=== PATIENT | male | born 1980 | race Caucasian/White ===

== ENCOUNTER 2017-06-25 13:59 | Inpatient (IN) | payer OTHER ==
[~2017-06-25] VITALS: Ht 175.3 cm; Wt 72.6 kg
[2017-06-25] VITALS (7 sets, daily range): BP systolic 104–155; BP diastolic 55–98
[~2017-06-25 13:59] MED LIST: DILANTIN100 MG ORAL; KEPPRA500 MG ORAL
[2017-06-25] MEDS ORDERED: LORazepam Inj 2mg/ml 1ml ONE (14:19)
[2017-06-25] MEDS ORDERED: LORazepam Inj 2mg/ml 1ml IM ONE (14:30)
[2017-06-25 15:07] LABS: BASOPHILS % (AUTO) 2.9 % (0.0-2.0); EOSINOPHILS % (AUTO) 1.8 % (0.0-3.0); HEMATOCRIT 33.4 % (42.0-52.0); HEMOGLOBIN 10.7 G/DL (14.2-18.0); LYMPHOCYTES % (AUTO) 35.9 % (20.0-45.0); MEAN CORPUSCULAR VOLUME 101 FL (80-99); MONOCYTES % (AUTO) 11.1 % (1.0-10.0); NEUTROPHILS % (AUTO) 48.3 % (45.0-75.0); PLATELET COUNT 168 K/UL (150-450); RED BLOOD COUNT 3.31 M/UL (4.70-6.10); WHITE BLOOD COUNT 7.3 K/UL (4.8-10.8)
[2017-06-25] MEDS ORDERED: LORazepam Inj 2mg/ml 1ml IV ONE (15:30)
[2017-06-25 15:31] LABS: ANION GAP 23 mmol/L (5-15); BLOOD UREA NITROGEN 12 mg/dL (7-18); CALCIUM 10.2 MG/DL (8.5-10.1); CARBON DIOXIDE 10 MMOL/L (21-32); CHLORIDE 107 MMOL/L (98-107); CREATININE 1.3 MG/DL (0.55-1.30); POTASSIUM 5.5 MMOL/L (3.5-5.1); SODIUM 140 MMOL/L (136-145)
[2017-06-25 15:41] LABS: ALANINE AMINOTRANSFERASE 42 U/L (12-78); ALBUMIN 3.4 G/DL (3.4-5.0); ALBUMIN/GLOBULIN RATIO 0.6 (1.0-2.7); ALKALINE PHOSPHATASE 148 U/L (46-116); ASPARTATE AMINO TRANSFERASE 90 U/L (15-37); BILIRUBIN,TOTAL 1.8 MG/DL (0.2-1.0)
[2017-06-25 15:49] LABS: BILIRUBIN,DIRECT 1.1 MG/DL (0.0-0.3)
--- NOTE | 2017-06-25 16:18 | Emergency Room Report ---
History of Present Illness General Chief Complaint: Seizure Source: Patient, EMS Present Illness HPI 28-year-old male presents ED for evaluation. Patient brought in by EMS status post seizure. unwitnessed seizure. Patient was on ground. Bystander called 911. Patient presents with laceration over right eyebrow, in c-collar. Patient is post ictal. according to EMS has a history of seizures but also history of alcohol abuse. Patient states he does not take any seizure medications. Denies any pain. Denies any drug use. Denies any chest pain shortness of breath. No other aggravating relieving factors. Denies any other associated symptoms Allergies: Coded Allergies: No Known Allergies (Unverified , 06/25/17) Patient History Past Medical History: seizures Past Surgical History: none Pertinent Family History: none Social History: Reports: alcohol use, Denies: smoking, drug use Immunizations: UTD Reviewed Nursing Documentation: PMH: Agreed, PSxH: Agreed Nursing Documentation-PMH Past Medical History: No History, Except For Hx Seizures: Yes Review of Systems All Other Systems: negative except mentioned in HPI Physical Exam Vital Signs Date Time Temp Pulse Resp B/P (MAP) Pulse Ox O2 Delivery O2 Flow Rate FiO2 06/25/17 14:00 97.1 96 20 136/63 98 Room Air 97.2 Sp02 EP Interpretation: reviewed, normal General Appearance: no apparent distress, Postictal Head: normocephalic, other - 1cm laceration above R eyebrow Eyes: bilateral eye normal inspection, bilateral eye PERRL ENT: hearing grossly normal, normal pharynx, no angioedema, normal voice Neck: full range of motion, supple/symm/no masses Respiratory: chest non-tender, lungs clear, normal breath sounds, speaking full sentences Cardiovascular #1: regular rate, rhythm, no edema Cardiovascular #2: 2+ carotid (R), 2+ carotid (L), 2+ radial (R), 2+ radial (L) , 2+ dorsalis pedis (R), 2+ dorsalis pedis (L) Gastrointestinal: normal bowel sounds, non tender, soft, non-distended, no guarding, no rebound Rectal: deferred Genitourinary: normal inspection, no CVA tenderness Musculoskeletal: back normal, gait/station normal, normal range of motion, non- tender Neurologic: other - postictal Psychiatric: other - postictal Reflexes: 3+ bicep (R), 3+ bicep (L), 3+ tricep (R), 3+ tricep (L), 3+ knee (R) , 3+ knee (L) Skin: normal color, no rash, warm/dry, well hydrated Lymphatic: no adenopathy Medical Decision Making Diagnostic Impression: Primary Impression: Seizure disorder Additional Impressions: Alcohol withdrawal Qualified Codes: F10.239 - Alcohol dependence with withdrawal, unspecified Head injury Qualified Codes: S09.90XA - Unspecified injury of head, initial encounter Laceration ER Course Hospital Course 36-year-old male presents ED status post seizure. Head injury. History of alcohol abuse Differential diagnoses include: Alcohol intoxication, drug abuse, opioid withdrawal, alcohol withdrawal, dehydration, drug seeking behavior Clinical course Patient placed on stretcher. On panel monitor. After initial history and physical I ordered labs, IV fluids, Ativan, CT head and CT Cspine Labs reviewed-electrolytes okay, hemoglobin/hematocrit stable, no leukocytosis, alcohol level 10, aspirin/Tylenol levels negative, U. tox negative CT head and CT Cspine unremarkable Small laceration above right eyebrow. Repaired with Dermabond Patient given Ativan twice in ED with no further seizures. However remains postictal and lethargic Case discussed with Dr. Lester and he agreed to except the patient to his service for further care and support i. I feel this is a highly complex case requiring extensive working including EKG/Rhythm strip, Xray/CT/US, Blood/urine lab work, repeat exams while in ED, and administration of strong opiates/narcotics for pain control, admission to hospital or close patient follow up. Diagnosis - alcohol withdrawal , seizure, head injury, laceration Admitted to telemetry in serious condition Labs Test 06/25/17 14:44 06/25/17 14:50 White Blood Count 7.3 K/UL (4.8-10.8) Red Blood Count 3.31 M/UL (4.70-6.10) Hemoglobin 10.7 G/DL (14.2-18.0) Hematocrit 33.4 % (42.0-52.0) Mean Corpuscular Volume 101 FL (80-99) Mean Corpuscular Hemoglobin 32.3 PG (27.0-31.0) Mean Corpuscular Hemoglobin Concent 32.0 G/DL (32.0-36.0) Red Cell Distribution Width 15.0 % (11.6-14.8) Platelet Count 168 K/UL (150-450) Mean Platelet Volume 7.1 FL (6.5-10.1) Neutrophils (%) (Auto) 48.3 % (45.0-75.0) Lymphocytes (%) (Auto) 35.9 % (20.0-45.0) Monocytes (%) (Auto) 11.1 % (1.0-10.0) Eosinophils (%) (Auto) 1.8 % (0.0-3.0) Basophils (%) (Auto) 2.9 % (0.0-2.0) Sodium Level 140 MMOL/L (136-145) Potassium Level 5.5 MMOL/L (3.5-5.1) Chloride Level 107 MMOL/L (98-107) Carbon Dioxide Level 10 MMOL/L (21-32) Anion Gap 23 mmol/L (5-15) Blood Urea Nitrogen 12 mg/dL (7-18) Creatinine 1.3 MG/DL (0.55-1.30) Estimat Glomerular Filtration Rate > 60 mL/min (>60) Glucose Level 97 MG/DL (74-106) Calcium Level 10.2 MG/DL (8.5-10.1) Total Bilirubin 1.8 MG/DL (0.2-1.0) Direct Bilirubin 1.1 MG/DL (0.0-0.3) Aspartate Amino Transf (AST/SGOT) 90 U/L (15-37) Alanine Aminotransferase (ALT/SGPT) 42 U/L (12-78) Alkaline Phosphatase 148 U/L (46-116) Total Protein 9.1 G/DL (6.4-8.2) Albumin 3.4 G/DL (3.4-5.0) Globulin 5.7 g/dL Albumin/Globulin Ratio 0.6 (1.0-2.7) Salicylates Level < 0.2 ug/mL (2.8-20) Acetaminophen Level < 10 MCG/ML (10-30) Phenytoin (Dilantin) Level < 0.4 ug/mL (10-20) Valproic Acid (Depakene) Level < 3 MCG/ML (50-100) Carbamazepine (Tegretol) Level < 0.5 ug/mL (4.0-12.0) Phenobarbital Level < 1.0 ug/mL (15-40) Serum Alcohol 10 mg/dL Urine Opiates Screen Negative (NEGATIVE) Urine Barbiturates Screen Negative (NEGATIVE) Phencyclidine (PCP) Screen Negative (NEGATIVE) Urine Amphetamines Screen Negative (NEGATIVE) Urine Benzodiazepines Screen Negative (NEGATIVE) Urine Cocaine Screen Negative (NEGATIVE) Urine Marijuana (THC) Screen Negative (NEGATIVE) EKG Diagnostic Results Rate: tachycardiac Rhythm: NSR ST Segments: no acute changes ASA given to the pt in ED: No Rhythm Strip Diag. Results EP Interpretation: yes Rhythm: NSR, no PVC's, no ectopy CT/MRI/US Diagnostic Results CT/MRI/US Diagnostic Results #1: Imaging Test Ordered: CT Head Impression no acute process CT/MRI/US Diagnostic Results #2: Imaging Test Ordered: CT Cspine Impression no acute process Last Vital Signs Date Time Temp Pulse Resp B/P (MAP) Pulse Ox O2 Delivery O2 Flow Rate FiO2 06/25/17 15:44 97.2 122 16 119/65 100 Room Air 97.2 Status: improved Disposition: ADMITTED INPATIENT Condition: Serious Scripts Unable to Obtain Active Prescriptions or Reported Meds Referrals: NOT CHOSEN IPA/,REFERRING (PCP) ANGELA LAWRENCE M.D. Jun 25, 2017 16:18
[2017-06-25] MEDS ORDERED: chlordiazePOXIDE 25mg Cap ORAL PRN (17:30)
[2017-06-25] MEDS ORDERED: Milk of Magnesia 30ml Ud ORAL PRN (17:30)
[2017-06-25] MEDS: LORazepam Inj 2mg/ml 1ml IV PRN (18:17)
[2017-06-25] MEDS ORDERED: Folic Acid 1 MG, Magnesium Sulfate 2,000 MG, Multivitamin - 12 Injection 10 ML in NS w/... IV ONE (18:30)
[2017-06-25] MEDS ORDERED: Thiamine HCl 100 MG in NS 110 ML IV ONE (18:30)
[2017-06-25] MEDS: Docusate 100mg cap ORAL SCH (22:12)
[2017-06-25] MEDS: Heparin 5000 units/ml inj SUBQ SCH (22:12)
[2017-06-26 04:05] VITALS: BP 147/67
[2017-06-26 08:00] VITALS: BP 130/88
[2017-06-26 08:11] LABS: BASOPHILS % (AUTO) 1.9 % (0.0-2.0); EOSINOPHILS % (AUTO) 3.7 % (0.0-3.0); HEMATOCRIT 30.4 % (42.0-52.0); HEMOGLOBIN 10.2 G/DL (14.2-18.0); LYMPHOCYTES % (AUTO) 33.2 % (20.0-45.0); MEAN CORPUSCULAR VOLUME 98 FL (80-99); MONOCYTES % (AUTO) 12.6 % (1.0-10.0); NEUTROPHILS % (AUTO) 48.6 % (45.0-75.0); PLATELET COUNT 114 K/UL (150-450); RED BLOOD COUNT 3.12 M/UL (4.70-6.10); RED CELL DISTRIBUTION WIDTH 14.1 % (11.6-14.8); WHITE BLOOD COUNT 4.9 K/UL (4.8-10.8)
[2017-06-26 08:13] LABS: ANION GAP 9 mmol/L (5-15); BLOOD UREA NITROGEN 12 mg/dL (7-18); CALCIUM 9.3 MG/DL (8.5-10.1); CARBON DIOXIDE 22 MMOL/L (21-32); CHLORIDE 108 MMOL/L (98-107); CREATININE 1.2 MG/DL (0.55-1.30); POTASSIUM 3.8 MMOL/L (3.5-5.1); SODIUM 139 MMOL/L (136-145)
[2017-06-26] MEDS: Docusate 100mg cap ORAL SCH ×2 (08:15→21:00)
[2017-06-26] MEDS: Heparin 5000 units/ml inj SUBQ SCH ×2 (08:16→21:00)
[2017-06-26 08:19] LABS: ALANINE AMINOTRANSFERASE 34 U/L (12-78); ALBUMIN 2.9 G/DL (3.4-5.0); ALBUMIN/GLOBULIN RATIO 0.6 (1.0-2.7); ALKALINE PHOSPHATASE 136 U/L (46-116); ASPARTATE AMINO TRANSFERASE 49 U/L (15-37); BILIRUBIN,DIRECT 1.3 MG/DL (0.0-0.3); BILIRUBIN,TOTAL 1.7 MG/DL (0.2-1.0)
[2017-06-26] MEDS: 1/2NS w/KCl 20mEq 1000ml 1,000 ML IV SCH ×2 (09:18→18:43)
--- NOTE | 2017-06-26 10:21 | Diagnostic Imaging Report ---
Indication: Fall, trauma, pain Technique: Spiral acquisitions obtained through the cervical spine. No IV contrast utilized. Multiplanar reconstructions were generated. Total dose length product 1580.3 mGycm. CTDIvol(s) 70.38,15.88 mGy. Dose reduction achieved using automated exposure control. Comparison: none Findings: There is slight image degradation due to motion artifact. No acute fractures or dislocations. There is slight straightening of the normal cervical lordosis, otherwise normal bony alignment. There is slight height loss of the C5 vertebral body, which is probably due to degenerative remodeling. The remaining vertebral body heights are preserved. The disc spaces are preserved. There are degenerative proliferative changes anteriorly at C4-5. No significant disc bulge or protrusion, spinal stenosis, or neural foraminal narrowing. There is an old ununited fracture deformity of the medial right clavicle. There is an old healed fracture deformity of the left side of the mandible. There is an old healed fracture deformity of the posterior right first rib The included extraspinal soft tissues are unremarkable. Impression: No acute bony trauma Old right clavicular, right first rib, left mandibular fractures, as described Mild degenerative changes, as described This agrees with the preliminary interpretation provided overnight by [facility] telerad[facility] service. The CT scanner at [facility] is accredited by the [employer] and the scans are performed using protocols designed to limit radiation exposure to as low as reasonably achievable to attain images of sufficient resolution adequate for diagnostic evaluation.
--- NOTE | 2017-06-26 10:25 | Diagnostic Imaging Report ---
Indications: Seizure Technique: Spiral acquisitions obtained through the brain. Angled axial and coronal 5 x 5 mm slices were reconstructed. Total dose length product 1580.3 mGycm. CTDI vol(s) 70.38,15.88 mGy. Dose reduction achieved using automated exposure control Comparison: None. Findings: There is cerebral volume loss which is out of proportion to patient's age. Normal lemus-white differentiation. No acute hemorrhage or edema. No mass effect or midline shift. Focus of encephalomalacia is seen in the left inferior frontal subcortical white matter. Intact calvarium. Visualized orbits and sinuses are unremarkable. The mastoids are clear Impression: Volume loss out of proportion to patient's age Left inferior frontal focal encephalomalacia, all presumably related to prior insult, either ischemic or traumatic Negative for acute intracranial bleed or mass effect This agrees with the preliminary interpretation provided overnight by [facility] service. The CT scanner at [facility] is accredited by the [employer] and the scans are performed using protocols designed to limit radiation exposure to as low as reasonably achievable to attain images of sufficient resolution adequate for diagnostic evaluation.
[2017-06-26 20:00] VITALS: BP 146/95
--- NOTE | 2017-06-26 22:30 | History and Physical Report ---
DATE OF ADMISSION: 06/25/2017 CHIEF COMPLAINT: Contusion and laceration of the left head. HISTORY OF PRESENT ILLNESS: This is a 36-year-old male, who has chronic alcoholism. The patient presented to the emergency department with posttraumatic laceration and contusion of the left frontal area. The patient had dressing done and wound care and had evidence of alcohol withdrawal. The patient is admitted to the telemetry unit for further evaluation and management. PAST MEDICAL HISTORY: Chronic alcoholism. HOME MEDICATIONS: No known home medications. ALLERGIES: No known allergies. SOCIAL HISTORY: The patient is homeless for 10 years. The patient has been already evaluated by social research assistant. He is regularly followed by [facility]. He is also followed by [facility]. FAMILY HISTORY: Unremarkable. REVIEW OF SYSTEMS: HEENT: Hearing and eyesight are normal. ENDOCRINE: No history of diabetes, thyroid, or adrenal problems. RESPIRATORY: He denies shortness of breath, cough, or hemoptysis. CARDIOVASCULAR: He denies chest pain or palpitations. GASTROINTESTINAL: No history of hematochezia, melena, hematemesis, diarrhea, or constipation. GENITOURINARY: He denies dysuria, frequency, urgency, or hematuria. PHYSICAL EXAMINATION: GENERAL: This is a middle-aged, disheveled, male, who is in no acute distress. VITAL SIGNS: Blood pressure is 130/88, pulse is 99 and regular, respirations 20, and temperature is 97.9 degrees. HEENT: He has a left forehead laceration. NECK: Supple. Trachea midline. There was no lymphadenopathy or thyromegaly. LUNGS: Clear to auscultation and percussion. HEART: Regular rate and rhythm without rubs, murmurs, or gallops. ABDOMEN: Soft and nontender. Bowel sounds were active. EXTREMITIES: No clubbing, cyanosis, or edema. NEUROLOGICAL: He is alert and oriented x4. Cranial nerves II through XII intact. LABORATORY AND ANCILLARY DATA: CT scan of the head, negative for bleeding. CT scan of the spine, negative for trauma. CBC, hemoglobin 10.2, yesterday 10.7. Chemistry on admission, potassium 5.5, today 3.8. Total bilirubin 1.7. AST 49 and alkaline phosphatase of 136. ASSESSMENT: 1. Chronic alcoholism. 2. Alcohol withdrawal. PLAN: 1. IV fluids. 2. Banana bag. 3. Chlordiazepoxide therapy. 4. Discharge the patient when vital signs are stable and is clear mentally. Ca Anne M.D. DR: Monica JOB#: [id number] CC: AMANDA
[2017-06-27] VITALS: BP 143/100
[2017-06-27 04:00] VITALS: BP 154/76
[2017-06-27] MEDS: 1/2NS w/KCl 20mEq 1000ml 1,000 ML IV SCH ×3 (06:51→15:57)
[2017-06-27 08:00] VITALS: BP 150/99
[2017-06-27] MEDS: Docusate 100mg cap ORAL SCH ×3 (08:22→21:00)
[2017-06-27] MEDS: Heparin 5000 units/ml inj SUBQ SCH ×2 (08:22→21:00)
[2017-06-27 08:29] LABS: BASOPHILS % (AUTO) 1.9 % (0.0-2.0); EOSINOPHILS % (AUTO) 4.3 % (0.0-3.0); HEMATOCRIT 31.3 % (42.0-52.0); HEMOGLOBIN 10.7 G/DL (14.2-18.0); LYMPHOCYTES % (AUTO) 35.1 % (20.0-45.0); MEAN CORPUSCULAR VOLUME 97 FL (80-99); MONOCYTES % (AUTO) 11.6 % (1.0-10.0); NEUTROPHILS % (AUTO) 47.1 % (45.0-75.0); PLATELET COUNT 105 K/UL (150-450); RED BLOOD COUNT 3.22 M/UL (4.70-6.10); RED CELL DISTRIBUTION WIDTH 14.1 % (11.6-14.8); WHITE BLOOD COUNT 4.4 K/UL (4.8-10.8)
[2017-06-27 09:34] LABS: ANION GAP 10 mmol/L (5-15); BLOOD UREA NITROGEN 13 mg/dL (7-18); CALCIUM 9.3 MG/DL (8.5-10.1); CARBON DIOXIDE 21 MMOL/L (21-32); CHLORIDE 105 MMOL/L (98-107); CREATININE 1.2 MG/DL (0.55-1.30); POTASSIUM 4.7 MMOL/L (3.5-5.1); SODIUM 136 MMOL/L (136-145)
[2017-06-27 12:00] VITALS: BP 145/106
--- NOTE | 2017-06-27 13:07 | General Progress Note ---
Assessment/Plan Assessment/Plan Alcohol Withdrawal - resolving. Profound Hypomagnesemia - correct Subjective Allergies: Coded Allergies: No Known Allergies (Unverified , 06/25/17) Subjective Weak. Objective Last 24 Hour Vital Signs Date Time Temp Pulse Resp B/P (MAP) Pulse Ox O2 Delivery O2 Flow Rate FiO2 06/27/17 08:00 97.9 79 18 150/99 98 97.9 06/27/17 08:00 100 06/27/17 04:00 99.0 89 22 154/76 96 99.0 06/27/17 04:00 91 06/27/17 00:00 72 06/27/17 00:00 97.7 68 20 143/100 96 97.7 06/26/17 22:33 98.0 06/26/17 21:34 100.4 06/26/17 20:00 100 06/26/17 20:00 100.4 100 20 146/95 97 100.4 06/26/17 16:00 85 Intake and Output 06/26/17 06/27/17 19:00 07:00 Intake Total 720 ml 500 ml Output Total 1000 ml 850 ml Balance -280 ml -350 ml Intake Oral 720 ml 500 ml Output Urine Total 1000 ml 850 ml Laboratory Tests 06/27/17 07:40: White Blood Count 4.4L, Red Blood Count 3.22L, Hemoglobin 10.7L, Hematocrit 31.3L, Mean Corpuscular Volume 97, Mean Corpuscular Hemoglobin 33.2H, Mean Corpuscular Hemoglobin Concent 34.1, Red Cell Distribution Width 14.1, Platelet Count 105L, Mean Platelet Volume 7.6, Neutrophils (%) (Auto) 47.1, Lymphocytes ( %) (Auto) 35.1, Monocytes (%) (Auto) 11.6H, Eosinophils (%) (Auto) 4.3H, Basophils (%) (Auto) 1.9, Sodium Level 136, Potassium Level 4.7, Chloride Level 105, Carbon Dioxide Level 21, Anion Gap 10, Blood Urea Nitrogen 13, Creatinine 1.2, Estimat Glomerular Filtration Rate > 60, Glucose Level 104, Calcium Level 9.3, Magnesium Level 1.3L Height (Feet): 5 Height (Inches): 9.00 Weight (Pounds): 160 Objective CV RR Lungs CTA Abd SNT BS + E No CCe GAGAN ABREU 6, 2018 13:07
[2017-06-27 16:00] VITALS: BP 158/94
[2017-06-27 20:00] VITALS: BP 153/98
--- NOTE | 2017-06-27 20:00 | Cardiology Report ---
APPROVED REPORT EKG Measurement Heart [id number] Sinus tachycardia Otherwise normal ECG
[2017-06-28] VITALS: BP 147/89
[2017-06-28] MEDS: 1/2NS w/KCl 20mEq 1000ml 1,000 ML IV SCH ×3 (01:04→21:25)
[2017-06-28] MEDS: LORazepam Inj 2mg/ml 1ml IV PRN (01:51)
[2017-06-28 04:00] VITALS: BP 150/91
[2017-06-28 08:00] VITALS: BP 142/82
[2017-06-28] MEDS: Docusate 100mg cap ORAL SCH ×2 (08:39→21:25)
[2017-06-28] MEDS: Heparin 5000 units/ml inj SUBQ SCH ×2 (08:39→21:00)
[2017-06-28 08:52] LABS: ANION GAP 8 mmol/L (5-15); BLOOD UREA NITROGEN 13 mg/dL (7-18); CALCIUM 9.4 MG/DL (8.5-10.1); CARBON DIOXIDE 23 MMOL/L (21-32); CHLORIDE 104 MMOL/L (98-107); CREATININE 1.1 MG/DL (0.55-1.30); PHOSPHORUS 4.4 MG/DL (2.5-4.9); POTASSIUM 4.4 MMOL/L (3.5-5.1); SODIUM 135 MMOL/L (136-145)
[2017-06-28 12:00] VITALS: BP 137/92
--- NOTE | 2017-06-28 12:36 | Consultation ---
History of Present Illness General Date patient seen: Jun 28, 2017 Chief Complaint: Seizure Present Illness HPI 36-year-old male,with hx of alcoholism. The patient presented to the emergency department with laceration and contusion of the left frontal area. the pt has been pw avh and agitated. tachy Allergies: Coded Allergies: No Known Allergies (Unverified , 06/25/17) Medication History Unable to Obtain Active Prescriptions or Reported Meds Patient History Limited by: medical condition History Provided By: Patient, Medical Record, PMD Healthcare decision maker N Resuscitation status Advanced Directive on File No Past Medical/Surgical History Past Medical/Surgical History: (1) Laceration and contusion of left cerebral hemisphere with brief (less than 1 hour) loss of consciousness (2) Laceration (3) Seizure disorder (4) Head injury (5) Alcohol withdrawal Review of Systems Psychiatric: Reports: prior hx, anxiety, depressed feelings, emotional problems Physical Exam General Appearance: no apparent distress, alert, agitated Last 24 Hour Vital Signs Date Time Temp Pulse Resp B/P (MAP) Pulse Ox O2 Delivery O2 Flow Rate FiO2 06/28/17 08:00 98.2 81 20 142/82 97 98.2 06/28/17 08:00 92 06/28/17 04:00 98.1 74 18 150/91 94 98.1 06/28/17 04:00 80 06/28/17 00:00 98.2 81 18 147/89 97 98.2 06/28/17 00:00 84 06/27/17 20:00 85 06/27/17 20:00 98.2 90 20 153/98 98 98.2 06/27/17 16:00 85 06/27/17 16:00 98.6 91 18 158/94 95 98.6 Intake and Output 06/27/17 06/28/17 19:00 07:00 Intake Total 720 ml 500 ml Output Total 1050 ml 2175 ml Balance -330 ml -1675 ml Intake Oral 720 ml 500 ml Output Urine Total 1050 ml 2175 ml # Voids 1 5 Laboratory Tests Test 06/28/17 06:54 Sodium Level 135 MMOL/L (136-145) L Potassium Level 4.4 MMOL/L (3.5-5.1) Chloride Level 104 MMOL/L (98-107) Carbon Dioxide Level 23 MMOL/L (21-32) Anion Gap 8 mmol/L (5-15) Blood Urea Nitrogen 13 mg/dL (7-18) Creatinine 1.1 MG/DL (0.55-1.30) Estimat Glomerular Filtration Rate > 60 mL/min (>60) Glucose Level 94 MG/DL (74-106) Calcium Level 9.4 MG/DL (8.5-10.1) Phosphorus Level 4.4 MG/DL (2.5-4.9) Magnesium Level 1.5 MG/DL (1.8-2.4) L Height (Feet): 5 Height (Inches): 9.00 Weight (Pounds): 160 Medications Current Medications Medications (Trade) Dose Ordered Sig/Dylan Route PRN Reason Start Time Stop Time Status Last Admin Dose Admin Acetaminophen (Tylenol) 650 mg Q4H PRN ORAL Mild Pain (Pain Scale 1-3) 06/25/17 17:30 07/25/17 17:29 06/26/17 21:34 Bisacodyl (Dulcolax) 10 mg HSPRN PRN RECTAL Constipation 06/25/17 17:30 07/25/17 17:29 Dextrose (Dextrose 50%) STAT PRN IV Hypoglycemia 06/25/17 17:30 07/25/17 17:29 Diazepam (Valium) 10 mg EVERY 4 HOURS ORAL 06/28/17 13:00 07/05/17 12:59 Docusate Sodium (Colace) 100 mg EVERY 12 HOURS ORAL 06/25/17 21:00 07/25/17 20:59 06/26/17 08:15 Heparin Sodium (Porcine) (Heparin 5000 units/ml) 5,000 units EVERY 12 HOURS SUBQ 06/25/17 21:00 07/25/17 20:59 06/25/17 22:12 Magnesium Hydroxide (Mom) 30 ml HSPRN PRN ORAL Constipation 06/25/17 17:30 07/25/17 17:29 Pantoprazole (Protonix) 40 mg DAILY ORAL 06/26/17 09:00 07/26/17 08:59 06/28/17 08:39 Risperidone (RisperDAL) 2 mg BEDTIME ORAL 06/28/17 21:00 07/28/17 20:59 Sodium 1,000 ml @ 100 mls/hr Q10H IV 06/26/17 09:00 07/26/17 08:59 06/28/17 01:04 Assessment/Plan Status: unchanged Assessment/Plan alcohol withdrawal severe agitation -dc Librium prn -start valium standing -dc ativan -start Peewee Caban M.D. Jun 28, 2017 12:36
[2017-06-28 16:00] VITALS: BP 123/71
--- NOTE | 2017-06-28 18:43 | General Progress Note ---
Assessment/Plan Assessment/Plan Alcohol Withdrawal - resolving. Still profound Hypomagnesemia - correct!! Subjective Allergies: Coded Allergies: No Known Allergies (Unverified , 06/25/17) Subjective Weak. Objective Last 24 Hour Vital Signs Date Time Temp Pulse Resp B/P (MAP) Pulse Ox O2 Delivery O2 Flow Rate FiO2 06/28/17 16:00 98.4 75 20 123/71 97 98.4 06/28/17 16:00 79 06/28/17 12:00 73 06/28/17 12:00 98.2 78 20 137/92 99 98.2 06/28/17 08:00 98.2 81 20 142/82 97 98.2 06/28/17 08:00 92 06/28/17 04:00 98.1 74 18 150/91 94 98.1 06/28/17 04:00 80 06/28/17 00:00 98.2 81 18 147/89 97 98.2 06/28/17 00:00 84 06/27/17 20:00 85 06/27/17 20:00 98.2 90 20 153/98 98 98.2 Intake and Output 06/27/17 06/28/17 19:00 07:00 Intake Total 720 ml 500 ml Output Total 1050 ml 2175 ml Balance -330 ml -1675 ml Intake Oral 720 ml 500 ml Output Urine Total 1050 ml 2175 ml # Voids 1 5 Laboratory Tests 06/28/17 06:54: Sodium Level 135L, Potassium Level 4.4, Chloride Level 104, Carbon Dioxide Level 23, Anion Gap 8, Blood Urea Nitrogen 13, Creatinine 1.1, Estimat Glomerular Filtration Rate > 60, Glucose Level 94, Calcium Level 9.4, Phosphorus Level 4.4, Magnesium Level 1.5L Height (Feet): 5 Height (Inches): 9.00 Weight (Pounds): 160 Objective CV RR Lungs CTA Abd SNT BS + E No CCe GAGAN ABREU Jun 28, 2017 18:43
[2017-06-28 20:00] VITALS: BP 139/79
[2017-06-29] VITALS: BP 142/95
[2017-06-29 04:00] VITALS: BP 129/83
[2017-06-29] MEDS: 1/2NS w/KCl 20mEq 1000ml 1,000 ML IV SCH ×2 (06:34→17:00)
[2017-06-29 08:00] VITALS: BP 116/65
[2017-06-29] MEDS: Docusate 100mg cap ORAL SCH ×2 (09:00→21:10)
[2017-06-29] MEDS: Heparin 5000 units/ml inj SUBQ SCH ×2 (10:24→21:13)
[2017-06-29 12:00] VITALS: BP 107/77
--- NOTE | 2017-06-29 12:57 | General Progress Note ---
Subjective Date patient seen: Jun 29, 2017 Neurologic/Psychiatric: Reports: anxiety, depressed, emotional problems Allergies: Coded Allergies: No Known Allergies (Unverified , 05/15/17) Objective Last 24 Hour Vital Signs Date Time Temp Pulse Resp B/P (MAP) Pulse Ox O2 Delivery O2 Flow Rate FiO2 06/29/17 12:00 97.3 90 20 107/77 96 Room Air 97.3 06/29/17 08:00 88 06/29/17 08:00 97.3 74 20 116/65 97 Room Air 97.3 06/29/17 04:00 97.0 84 20 129/83 97 Room Air 97.0 06/29/17 04:00 80 06/29/17 00:00 68 06/29/17 00:00 97.5 66 20 142/95 99 Room Air 97.5 06/28/17 20:00 81 06/28/17 20:00 98.4 81 20 139/79 98 98.4 06/28/17 16:00 98.4 75 20 123/71 97 98.4 06/28/17 16:00 79 Intake and Output 06/28/17 06/29/17 19:00 07:00 Intake Total 1390 ml 1158 ml Output Total 2900 ml 600 ml Balance -1510 ml 558 ml Intake Oral 990 ml IV Total 400 ml 1158 ml Output Urine Total 2900 ml 600 ml # Voids 2 Height (Feet): 5 Height (Inches): 9.00 Weight (Pounds): 160 Peewee Lynch M.D. Jun 29, 2017 12:57
[2017-06-29 16:00] VITALS: BP 112/93
--- NOTE | 2017-06-29 16:41 | General Progress Note ---
Assessment/Plan Assessment/Plan Alcohol Withdrawal - resolving. Still profound Hypomagnesemia - correct!! Subjective Allergies: Coded Allergies: No Known Allergies (Unverified , 05/15/17) Subjective Weak. Objective Last 24 Hour Vital Signs Date Time Temp Pulse Resp B/P (MAP) Pulse Ox O2 Delivery O2 Flow Rate FiO2 06/29/17 12:00 97.3 90 20 107/77 96 Room Air 97.3 06/29/17 08:00 88 06/29/17 08:00 97.3 74 20 116/65 97 Room Air 97.3 06/29/17 04:00 97.0 84 20 129/83 97 Room Air 97.0 06/29/17 04:00 80 06/29/17 00:00 68 06/29/17 00:00 97.5 66 20 142/95 99 Room Air 97.5 06/28/17 20:00 81 06/28/17 20:00 98.4 81 20 139/79 98 98.4 Intake and Output 06/28/17 06/29/17 19:00 07:00 Intake Total 1390 ml 1158 ml Output Total 2900 ml 600 ml Balance -1510 ml 558 ml Intake Oral 990 ml IV Total 400 ml 1158 ml Output Urine Total 2900 ml 600 ml # Voids 2 Height (Feet): 5 Height (Inches): 9.00 Weight (Pounds): 160 Objective CV RR Lungs CTA Abd SNT BS + E No CCe GAGAN ABREU Jun 29, 2017 16:41
[2017-06-29 20:00] VITALS: BP 108/65
[2017-06-30] VITALS: BP 122/75
[2017-06-30] MEDS: 1/2NS w/KCl 20mEq 1000ml 1,000 ML IV SCH ×3 (03:03→23:00)
[2017-06-30 04:00] VITALS: BP 125/79
[2017-06-30 07:46] LABS: ALANINE AMINOTRANSFERASE 25 U/L (12-78); ALBUMIN 2.8 G/DL (3.4-5.0); ALBUMIN/GLOBULIN RATIO 0.6 (1.0-2.7); ALKALINE PHOSPHATASE 121 U/L (46-116); ANION GAP 9 mmol/L (5-15); ASPARTATE AMINO TRANSFERASE 29 U/L (15-37); BILIRUBIN,TOTAL 1.1 MG/DL (0.2-1.0); BLOOD UREA NITROGEN 19 mg/dL (7-18); CALCIUM 9.7 MG/DL (8.5-10.1); CARBON DIOXIDE 22 MMOL/L (21-32); CHLORIDE 108 MMOL/L (98-107); CREATININE 1.4 MG/DL (0.55-1.30); POTASSIUM 4.7 MMOL/L (3.5-5.1); SODIUM 139 MMOL/L (136-145)
[2017-06-30 07:47] LABS: BILIRUBIN,DIRECT 0.9 MG/DL (0.0-0.3)
[2017-06-30 08:00] VITALS: BP 138/86
[2017-06-30] MEDS: Docusate 100mg cap ORAL SCH ×2 (09:23→09:26)
[2017-06-30] MEDS: Heparin 5000 units/ml inj SUBQ SCH ×2 (09:24→20:56)
[2017-06-30 12:00] VITALS: BP 142/94
--- NOTE | 2017-06-30 14:13 | General Progress Note ---
Assessment/Plan Assessment/Plan Alcohol Withdrawal - resolving. Still profound Hypomagnesemia - correct!! Subjective Allergies: Coded Allergies: [place]on[place] (Verified Allergy, Severe, 06/29/17) FISH CONTAINING PRODUCTS (Verified Allergy, Severe, 06/29/17) Mushroom (Verified Allergy, Severe, 06/29/17) Subjective Weak. Objective Last 24 Hour Vital Signs Date Time Temp Pulse Resp B/P (MAP) Pulse Ox O2 Delivery O2 Flow Rate FiO2 06/30/17 12:00 98.4 84 20 142/94 96 Room Air 98.4 06/30/17 08:00 97.6 92 21 138/86 96 Room Air 97.6 06/30/17 08:00 104 06/30/17 04:00 97.0 80 20 125/79 97 Room Air 97.0 06/30/17 04:00 93 06/30/17 00:00 97.3 86 20 122/75 97 Room Air 97.3 06/30/17 00:00 86 06/29/17 20:00 112 06/29/17 20:00 98.1 114 20 108/65 98 Room Air 98.1 06/29/17 16:00 96 06/29/17 16:00 97.7 94 20 112/93 98 Room Air 97.7 Intake and Output 06/29/17 06/30/17 19:00 07:00 Intake Total 940 ml 1243 ml Output Total 1450 ml Balance -510 ml 1243 ml Intake Oral 940 ml IV Total 1243 ml Output Urine Total 1450 ml # Voids 2 Laboratory Tests 06/29/17 20:30: Magnesium Level 1.9 06/30/17 05:20: Magnesium Level 1.6L, Sodium Level 139, Potassium Level 4.7, Chloride Level 108H , Carbon Dioxide Level 22, Anion Gap 9, Blood Urea Nitrogen 19H, Creatinine 1.4H , Estimat Glomerular Filtration Rate 56.7, Glucose Level 91, Calcium Level 9.7, Total Bilirubin 1.1H, Direct Bilirubin 0.9H, Aspartate Amino Transf (AST/SGOT) 29, Alanine Aminotransferase (ALT/SGPT) 25, Alkaline Phosphatase 121H, Total Protein 7.6, Albumin 2.8L, Globulin 4.8, Albumin/Globulin Ratio 0.6L Height (Feet): 5 Height (Inches): 9.00 Weight (Pounds): 160 Objective CV RR Lungs CTA Abd SNT BS + E No CCe GAGAN ABREU Jun 30, 2017 14:13
[2017-06-30 16:00] VITALS: BP 132/87
[2017-06-30 20:00] VITALS: BP 126/82
--- NOTE | 2017-06-30 21:59 | General Progress Note ---
Subjective Date patient seen: Jun 30, 2017 Allergies: Coded Allergies: [place] (Verified Allergy, Severe, 06/29/17) FISH CONTAINING PRODUCTS (Verified Allergy, Severe, 06/29/17) Mushroom (Verified Allergy, Severe, 06/29/17) Objective Last 24 Hour Vital Signs Date Time Temp Pulse Resp B/P (MAP) Pulse Ox O2 Delivery O2 Flow Rate FiO2 06/30/17 20:00 97.5 98 20 126/82 96 97.5 06/30/17 20:00 96 06/30/17 16:00 97.9 91 21 132/87 97 Room Air 97.9 06/30/17 16:00 102 06/30/17 12:00 89 06/30/17 12:00 98.4 84 20 142/94 96 Room Air 98.4 06/30/17 08:00 97.6 92 21 138/86 96 Room Air 97.6 06/30/17 08:00 104 06/30/17 04:00 97.0 80 20 125/79 97 Room Air 97.0 06/30/17 04:00 93 06/30/17 00:00 97.3 86 20 122/75 97 Room Air 97.3 06/30/17 00:00 86 Intake and Output 06/29/17 06/30/17 19:00 07:00 Intake Total 940 ml 1243 ml Output Total 1450 ml Balance -510 ml 1243 ml Intake Oral 940 ml IV Total 1243 ml Output Urine Total 1450 ml # Voids 2 Laboratory Tests 06/30/17 05:20: Sodium Level 139, Potassium Level 4.7, Chloride Level 108H, Carbon Dioxide Level 22, Anion Gap 9, Blood Urea Nitrogen 19H, Creatinine 1.4H, Estimat Glomerular Filtration Rate 56.7, Glucose Level 91, Calcium Level 9.7, Magnesium Level 1.6L, Total Bilirubin 1.1H, Direct Bilirubin 0.9H, Aspartate Amino Transf (AST/SGOT) 29, Alanine Aminotransferase (ALT/SGPT) 25, Alkaline Phosphatase 121H , Total Protein 7.6, Albumin 2.8L, Globulin 4.8, Albumin/Globulin Ratio 0.6L Height (Feet): 5 Height (Inches): 9.00 Weight (Pounds): 160 Peewee Lynch M.D. Jun 30, 2017 21:59
[2017-07-01] VITALS: BP 112/67
[2017-07-01 04:00] VITALS: BP 122/77
[2017-07-01 07:52] LABS: BASOPHILS % (AUTO) 1.8 % (0.0-2.0); EOSINOPHILS % (AUTO) 5.4 % (0.0-3.0); HEMATOCRIT 30.2 % (42.0-52.0); HEMOGLOBIN 10.2 G/DL (14.2-18.0); LYMPHOCYTES % (AUTO) 42.4 % (20.0-45.0); MEAN CORPUSCULAR VOLUME 98 FL (80-99); NEUTROPHILS % (AUTO) 37.5 % (45.0-75.0); PLATELET COUNT 105 K/UL (150-450); RED BLOOD COUNT 3.09 M/UL (4.70-6.10); RED CELL DISTRIBUTION WIDTH 13.9 % (11.6-14.8); WHITE BLOOD COUNT 3.8 K/UL (4.8-10.8)
[2017-07-01 08:00] VITALS: BP 131/92
[2017-07-01 08:08] LABS: ANION GAP 9 mmol/L (5-15); BLOOD UREA NITROGEN 19 mg/dL (7-18); CALCIUM 10.4 MG/DL (8.5-10.1); CARBON DIOXIDE 21 MMOL/L (21-32); CHLORIDE 109 MMOL/L (98-107); CREATININE 1.3 MG/DL (0.55-1.30); POTASSIUM 4.7 MMOL/L (3.5-5.1); SODIUM 139 MMOL/L (136-145)
[2017-07-01] MEDS: Heparin 5000 units/ml inj SUBQ SCH (09:00)
[2017-07-01] MEDS: Docusate 100mg cap ORAL SCH (09:43)
[2017-07-01] MEDS: 1/2NS w/KCl 20mEq 1000ml 1,000 ML IV SCH (09:44)
[2017-07-01 12:00] VITALS: BP 137/80
--- NOTE | 2017-07-01 13:19 | General Progress Note ---
Assessment/Plan Assessment/Plan Alcohol Withdrawal - resolving. Still profound Hypomagnesemia - corrected. DC home Subjective Allergies: Coded Allergies: [place] (Verified Allergy, Severe, 06/29/17) FISH CONTAINING PRODUCTS (Verified Allergy, Severe, 06/29/17) Mushroom (Verified Allergy, Severe, 06/29/17) Subjective Weak. Objective Last 24 Hour Vital Signs Date Time Temp Pulse Resp B/P (MAP) Pulse Ox O2 Delivery O2 Flow Rate FiO2 07/01/17 12:00 87 07/01/17 12:00 97.7 93 20 137/80 100 97.7 07/01/17 08:00 102 07/01/17 08:00 97.2 85 20 131/92 99 97.2 07/01/17 04:00 93 07/01/17 04:00 97.2 97 20 122/77 96 97.2 07/01/17 00:00 98 07/01/17 00:00 97.5 97 20 112/67 93 97.5 06/30/17 20:00 97.5 98 20 126/82 96 97.5 06/30/17 20:00 96 06/30/17 16:00 97.9 91 21 132/87 97 Room Air 97.9 06/30/17 16:00 102 Intake and Output 06/30/17 07/01/17 19:00 07:00 Intake Total 1100 ml 100 ml Output Total 1250 ml 1640 ml Balance -150 ml -1540 ml Intake Oral 1100 ml IV Total 100 ml Output Urine Total 1250 ml 1640 ml # Voids 3 Laboratory Tests 07/01/17 06:25: White Blood Count 3.8L, Red Blood Count 3.09L, Hemoglobin 10.2L, Hematocrit 30.2L, Mean Corpuscular Volume 98, Mean Corpuscular Hemoglobin 33.0H, Mean Corpuscular Hemoglobin Concent 33.8, Red Cell Distribution Width 13.9, Platelet Count 105L, Mean Platelet Volume 6.9, Neutrophils (%) (Auto) 37.5L, Lymphocytes (%) (Auto) 42.4, Monocytes (%) (Auto) 13.0H, Eosinophils (%) (Auto) 5.4H, Basophils (%) (Auto) 1.8, Sodium Level 139, Potassium Level 4.7, Chloride Level 109H, Carbon Dioxide Level 21, Anion Gap 9, Blood Urea Nitrogen 19H, Creatinine 1.3, Estimat Glomerular Filtration Rate > 60, Glucose Level 103, Calcium Level 10.4H, Magnesium Level 2.2 Height (Feet): 5 Height (Inches): 9.00 Weight (Pounds): 160 Objective CV RR Lungs CTA Abd SNT BS + E No CCe GAGAN ABREU Jul 01, 2017 13:19
[2017-07-01] MEDS ORDERED: Tubing IV Secondary IV ONE (15:14)
[2017-07-01] MEDS ORDERED: NS 275ml ONE (15:14)
--- NOTE | 2017-07-01 23:54 | General Progress Note ---
Assessment/Plan Status: stable, progressing Subjective Neurologic/Psychiatric: Reports: anxiety, depressed, emotional problems Allergies: Coded Allergies: [place] (Verified Allergy, Severe, 06/29/17) FISH CONTAINING PRODUCTS (Verified Allergy, Severe, 06/29/17) Mushroom (Verified Allergy, Severe, 06/29/17) Objective Last 24 Hour Vital Signs Date Time Temp Pulse Resp B/P (MAP) Pulse Ox O2 Delivery O2 Flow Rate FiO2 07/01/17 12:00 87 07/01/17 12:00 97.7 93 20 137/80 100 97.7 07/01/17 08:00 102 07/01/17 08:00 97.2 85 20 131/92 99 97.2 07/01/17 04:00 93 07/01/17 04:00 97.2 97 20 122/77 96 97.2 07/01/17 00:00 98 07/01/17 00:00 97.5 97 20 112/67 93 97.5 Intake and Output 06/30/17 07/01/17 19:00 07:00 Intake Total 1100 ml 100 ml Output Total 1250 ml 1640 ml Balance -150 ml -1540 ml Intake Oral 1100 ml IV Total 100 ml Output Urine Total 1250 ml 1640 ml # Voids 3 Laboratory Tests 07/01/17 06:25: White Blood Count 3.8L, Red Blood Count 3.09L, Hemoglobin 10.2L, Hematocrit 30.2L, Mean Corpuscular Volume 98, Mean Corpuscular Hemoglobin 33.0H, Mean Corpuscular Hemoglobin Concent 33.8, Red Cell Distribution Width 13.9, Platelet Count 105L, Mean Platelet Volume 6.9, Neutrophils (%) (Auto) 37.5L, Lymphocytes (%) (Auto) 42.4, Monocytes (%) (Auto) 13.0H, Eosinophils (%) (Auto) 5.4H, Basophils (%) (Auto) 1.8, Sodium Level 139, Potassium Level 4.7, Chloride Level 109H, Carbon Dioxide Level 21, Anion Gap 9, Blood Urea Nitrogen 19H, Creatinine 1.3, Estimat Glomerular Filtration Rate > 60, Glucose Level 103, Calcium Level 10.4H, Magnesium Level 2.2 Height (Feet): 5 Height (Inches): 9.00 Weight (Pounds): 160 General Appearance: no apparent distress, alert, agitated Farhadi,Pantea M.D. Jul 01, 2017 23:54
--- NOTE | 2017-07-04 15:00 | Discharge Summary ---
Discharge Summary Hospital Course Date of Admission Jun 25, 2017 at 17:10 Date of Discharge Jul 01, 2017 at 15:15 Admitting Diagnosis Seizure, Alcohol Withdrawal HPI Tejas Ceballos is a 36 year old male who was admitted on Jun 25, 2017 at 17:10 for Seizure, Alcohol Withdrawl Hospital Course dc summary #[id number] Discharge Medications Continued Medications: Levetiracetam (Keppra) 500 Mg Tab 500 MG ORAL BID for 30 Days, TAB 0 Refills Phenytoin Sodium Extended* (Dilantin*) 100 Mg Capsule Unknown Dose ORAL THREE TIMES A DAY, #90 CAP 0 Refills Discharge Condition Upon Discharge: stable Discharge Disposition Patient was discharged to Home (01) Discharge Diagnoses: Discharge Instructions Discharge Instructions Special Instructions I have been assigned to complete a D/C Summary on this account. I was not involved in the patient management Taya Collazo NP ([facility]te[place]) Jul 04, 2017 15:00
--- NOTE | 2017-07-05 07:30 | Discharge Summary 2 SIG ---
DATE OF ADMISSION: 06/25/2017 DATE OF DISCHARGE: 07/01/2017 REASON FOR ADMISSION: 36-year-old male with a history of alcohol abuse, seizure disorder, presented to the emergency department by paramedics after seizures. The patient was found on the ground. Bystander called 911. The patient presented with a laceration of the right eyebrow and C-collar. The patient was postictal and lethargic and was unable to provide much of the information. The patient stated however that he did not take any anti-seizure medications. He denied pain. Denied drug use. Denied chest pain or shortness of breath. No other associated symptoms. Upon evaluation in the emergency room, vital signs were stable. CT of the head revealed no acute intracranial pathology, but showed left inferior frontal focal encephalomalacia, presumably related to prior insult: ischemic versus traumatic. Volume loss was out of proportion to patient's age. However, CT of the head was negative for acute intracranial bleeding or mass effect. CT of the C-spine revealed no acute bony trauma. The patient presented with a small laceration above the right eyebrow and a contusion of the left frontal area. The patient was afebrile, no leukocytosis . Electrolytes were stable. Alcohol level 10. Aspirin, and Tylenol levels were negative. Urine toxicology screen was negative. Small laceration was repaired with Dermabond. The patient was admitted with diagnoses of alcohol withdrawal, chronic alcoholism, head injury, laceration, status post small laceration repair, seizure disorder HOSPITAL COURSE: The patient admitted. The patient started on IV fluids with a banana bag. Renal parameters and electrolytes closely monitored. Nephrotoxic avoided. Magnesium -1.3, replaced; on the day of discharge -2.2. Mental status was gradually improving. Psychiatrist seen and evaluated the patient, and diagnosed the patient with agitation. Librium was discontinued , and patient was started on Valium as needed. Patient was also started on Risperdal, Ativan stopped. Patient was continued on Keppra and Dilantin. Seizure precautions were maintained, patient was observed for paroxysmal events. No further seizure while in the hospital. The patient was counseled on abstinence from alcohol. The patient was stable for discharge. FINAL DIAGNOSES: 1. Chronic alcoholism. 2. Severe alcohol withdrawal. 3. Head injury. 4. Laceration, status post repair. 5. Seizure disorder 6. Profound hypomagnesemia. 7. Agitation. DISCHARGE MEDICATIONS: See medication reconciliation list. DISCHARGE INSTRUCTIONS: The patient discharged home. Follow up with primary care provider. Ca Anne M.D. I have been assigned to dictate discharge summary on this account and I was not involved in the patient's management. Taya Collazo ([place]anchtein) NRashadPRashad DR: MILI JOB#: [id number] CC: AMANDA
== END 2017-07-01 15:15 | disposition home or self-care (01) | DRG 775 ==
LOC: EDBD 13:59 → EMR 14:54 → 2E 17:10 → MERGE 17:10 → EDBEDREQ 18:26
PROC: 0HQ1XZZ Repair Face Skin, External Approach (ICD-10-PCS; principal; 2017-06-25)
DX: F10.239 Alcohol dependence with withdrawal, unspecified (principal); E83.42 Hypomagnesemia; G40.89 Other seizures; S01.81XA Laceration without foreign body of other part of head, initial encounter; S00.83XA Contusion of other part of head, initial encounter; R45.1 Restlessness and agitation; W19.XXXA Unspecified fall, initial encounter; Y92.410 Unspecified street and highway as the place of occurrence of the external cause; Z59.0 Homelessness; Z91.018 Allergy to other foods
CPT/HCPCS: 36415; 70450; 72125; 80048; 80053; 80156; 80164; 80184; 80185; 80307; 80329; 82248; 82962; 83735; 84100; 85025; 93005; 99285